=== PATIENT | male | born 1990 | race Caucasian/White ===

== ENCOUNTER 2017-10-11 13:46 | Emergency (ER) | payer OTHER ==
[~2017-10-11] VITALS: Ht 182.9 cm; Wt 79.4 kg
[2017-10-11 13:49] VITALS: BP_SYST 143
--- NOTE | 2017-10-11 13:54 | NUR ---
Pt placed to ER bed 03, report given to MELLY Chaves.
--- NOTE | 2017-10-11 13:59 | NUR ---
Patient is awake, alert, and oriented x4. He's complaining of pain to left axilla, abcess noted. Patient reports that it popped while he was showering on Saturday. He denies any preivous medical history.
--- NOTE | 2017-10-11 14:16 | NUR ---
ER at bedside examining patient.
[2017-10-11] MEDS ORDERED: AMOXICILLIN/CLAVULANATE POTASSIUM 875 MG TABLET PO ONE (15:00)
[2017-10-11] MEDS ORDERED: SULFAMETHOXAZOLE/TRIMETHOPR DS 1 TABLET PO ONE (15:00)
[2017-10-11] MEDS ORDERED: IBUPROFEN 800 MG TABLET PO ONE (15:15)
--- NOTE | 2017-10-11 15:15 | NUR ---
Patient given written and verbal discharge instructions and verbalizes understanding. ER MD discussed with patient the results and treatment provided. Patient in stable condition. ID arm band removed. Rx of motrin,augmentin,bactrim given. Patient educated on pain management and to follow up with PMD. Pain Scale 2/10. Opportunity for questions provided and answered. Medication side effect fact sheet provided.
[2017-10-11 15:23] VITALS: BP_SYST 134
== END 2017-10-11 15:23 | disposition home or self-care (01) ==
LOC: SED 13:46
DX: L02.412 Cutaneous abscess of left axilla (principal); R03.0 Elevated blood-pressure reading, without diagnosis of hypertension; Z91.02 Food additives allergy status
CPT/HCPCS: 99284